=== PATIENT | male | born 1945 | race Caucasian/White ===

== ENCOUNTER 2019-09-27 15:50 | Emergency (ER) | payer MEDICARE ==
[2019-09-27 15:58] VITALS: BP 130/81; PULSE 89
[2019-09-27 16:24] LABS: CHLORIDE,CL 103 mmol/L (98-107); SODIUM,NA 140 mmol/L (136-145)
--- NOTE | 2019-09-27 16:42 | EDM.PDOC ---
ED HPI GENERAL MEDICAL PROBLEM - General Chief Complaint: Respiratory Problem Stated Complaint: cough, fever, chest congestion Time Seen by Provider: 09/27/19 16:15 Source of Information: Reports: Patient History Limitations: Reports: No Limitations - History of Present Illness INITIAL COMMENTS - FREE TEXT/NARRATIVE: 24 hour history of body aches/cough/chills. Congested cough. No SOB/wheeze. No GI changes Has nasal congestion. Denies ear pain/sore throat. Decreased appetite. No fever. No other acute changes reported during ROS. Treatments WINCH OPERATOR: Reports: Other (see below) Other Treatments WINCH OPERATOR: mucinex Generalized Pain Score (Numeric/FACES): 6 - Related Data Allergies Allergy/AdvReac Type Severity Reaction Status Date / Time ciprofloxacin [From Cipro] Allergy Rash Verified 09/27/19 15:58 ciprofloxacin HCl Allergy Rash Verified 09/27/19 15:58 [From Cipro] Home Meds: Home Meds Aspirin [Low Dose Aspirin EC] 81 mg PO DAILY 03/22/15 [History] Cetirizine [ZyrTEC] 10 mg PO DAILY PRN 01/27/18 [History] Cholecalciferol (Vitamin D3) [Vitamin D3] 1,000 units PO DAILY 01/27/18 [History ] Escitalopram Oxalate 20 mg PO DAILY 01/27/18 [History] Finasteride 5 mg PO DAILY 01/27/18 [History] Ibuprofen [Ibu] 400 mg PO Q6H PRN 01/27/18 [History] Losartan [Cozaar] 100 mg PO DAILY 01/27/18 [History] Benzonatate [Tessalon Perle] 100 mg PO TID PRN #30 capsule 09/27/19 [Rx] Metoprolol Succinate [Toprol XL 100mg] 100 mg PO DAILY 09/27/19 [History] Past Medical History Other HEENT History: reading glasses Cardiovascular History: Reports: High Cholesterol, Hypertension Respiratory History: Reports: Sleep Apnea Gastrointestinal History: Reports: Diverticulosis, GERD Musculoskeletal History: Reports: Arthritis, Back Pain, Chronic Psychiatric History: Reports: Addiction, Depression, Mood Swings, Psych Hospitalization(s), PTSD Endocrine/Metabolic History: Reports: Vitamin D Deficiency - Infectious Disease History Infectious Disease History: Reports: Chicken Pox, Measles, Mumps - Past Surgical History HEENT Surgical History: Reports: Tonsillectomy Cardiovascular Surgical History: Reports: None GI Surgical History: Reports: Hernia, Inguinal Endocrine Surgical History: Reports: None Musculoskeletal Surgical History: Reports: None Social & Family History - Family History Family Medical History: Noncontributory - Caffeine Use Caffeine Use: Reports: Coffee ED ROS GENERAL - Review of Systems Review Of Systems: Comprehensive ROS is negative, except as noted in HPI. ED EXAM, GENERAL - Physical Exam Exam: See Below Exam Limited By: No Limitations General Appearance: Alert, WD/WN, No Apparent Distress, Other (appears fatigued) Eye Exam: Bilateral Eye: EOMI, PERRL Ears: Normal External Exam, Normal Canal, Hearing Grossly Normal Nose: No: Nasal Deformity, Nasal Swelling, Nasal Drainage Throat/Mouth: Normal Inspection, Normal Lips, Normal Voice, No Airway Compromise Head: Atraumatic, Normocephalic Neck: Normal Inspection, Supple, Non-Tender, Full Range of Motion Respiratory/Chest: No Respiratory Distress, Lungs Clear, Normal Breath Sounds, No Accessory Muscle Use, Chest Non-Tender Cardiovascular: Normal Peripheral Pulses, Regular Rate, Rhythm, No Edema, No Murmur Peripheral Pulses: 2+: Radial (L), Radial (R) GI/Abdominal: Normal Bowel Sounds, Soft, Non-Tender, No Distention (Male) Exam: Deferred Rectal (Males) Exam: Deferred Back Exam: Normal Inspection Extremities: Normal Inspection, Normal Range of Motion, Normal Capillary Refill Neurological: Alert, Oriented, Normal Cognition, Normal Gait, No Motor/Sensory Deficits Psychiatric: Normal Affect, Normal Mood Skin Exam: Warm, Dry, Intact, Normal Color Course - Vital Signs Last Recorded V/S: Last Vital Signs Temp 36 C L 09/27/19 15:50 Pulse 89 09/27/19 15:50 Resp 20 09/27/19 15:50 BP 130/81 09/27/19 15:50 Pulse Ox - Orders/Labs/Meds Orders: Active Orders 24 hr Category Date Time Status Chest 2V [CR] Stat Exams 09/27/19 16:00 Taken CULTURE BLOOD [BC] Stat Lab 09/27/19 16:07 Received UA W/MICROSCOPIC [URIN] Stat Lab 09/27/19 15:59 Ordered Labs: Laboratory Tests 09/27/19 09/27/19 09/27/19 Range/Units 16:07 16:07 16:07 WBC 4.9 (4.0-10.2) K/uL RBC 4.79 (4.33-5.41) M/uL Hgb 14.4 (13.1-16.8) g/dL Hct 43.0 (39.0-49.0) % MCV 89.8 (84.0-98.0) fL MCH 30.1 (28.2-33.3) pg MCHC 33.5 (31.7-36.0) g/dL RDW 12.7 (11.2-14.1) % Plt Count 182 (150-350) K/uL Neut % (Auto) 71.6 (45.0-80.0) % Lymph % (Auto) 11.6 (10.0-50.0) % Hyde % (Auto) 15.0 H (2.0-14.0) % Eos % (Auto) 1.2 (0.0-5.0) % Baso % (Auto) 0.6 (0.0-2.0) % Neut # (Auto) 3.53 (1.40-7.00) K/uL Lymph # (Auto) 0.57 (0.50-3.50) K/uL Hyde # (Auto) 0.74 (0.00-1.00) K/uL Eos # (Auto) 0.06 (0.00-0.50) K/uL Baso # (Auto) 0.03 (0.00-0.20) K/uL Sodium 140 (136-145) mmol/L Potassium 4.0 (3.5-5.1) mmol/L Chloride 103 (98-107) mmol/L Carbon Dioxide 26.6 (21.0-32.0) mmol/L BUN 18 (7-18) mg/dL Creatinine 1.05 (0.51-1.17) mg/dL Est Cr Clr Drug Dosing 74.89 mL/min Estimated GFR (MDRD) > 60 mL/min Glucose 115 H (74-106) mg/dL Lactic Acid 1.5 (0.4-2.0) mmol/L Calcium 8.5 (8.5-10.1) mg/dL Magnesium 1.8 (1.8-2.4) mg/dL Total Bilirubin 0.9 (0.2-1.0) mg/dL AST 18 (15-37) U/L ALT 27 (12-78) U/L Alkaline Phosphatase 99 (46-116) IU/L Total Protein 6.6 (6.4-8.2) g/dL Albumin 3.6 (3.4-5.0) g/dL - Re-Assessments/Exams Free Text/Narrative Re-Assessment/Exam: No obvious focal pneumonia on chest xray. Radiology to review. Normal WBC. CBC /Chem overall unremarkable. Influenza negative. Suspect viral syndrome. Patient received cough medication/albuterol MDI from ER stock. Tessalon Perles Rx to [facility] Sunday. Precautions reviewed. To follow up as needed if this does not follow normal viral course. Departure - Departure Time of Disposition: 16:59 Disposition: Home, Self-Care 01 Condition: Good Clinical Impression: Viral URI with cough - Discharge Information *PRESCRIPTION DRUG MONITORING PROGRAM REVIEWED*: Not Applicable *COPY OF PRESCRIPTION DRUG MONITORING REPORT IN PATIENT ANGUS: Not Applicable Prescriptions: Benzonatate [Tessalon Perle] 100 mg PO TID PRN #30 capsule PRN Reason: Cough Instructions: Viral Respiratory Infection, [facility] Forms: ED Department Discharge Additional Instructions: See how you feel over the next few days. Try the albuterol inhaler for your cough. 1-2 puffs every 4-6 hours as needed. Caution using it at night as it might lead to some insomnia. Use the liquid cough medicine 1-2 tsp every 6 hours. Use the Ketorolac 1 tab every 6 hours for pain. Do not take any ibuprofen or Aleve/naprosyn with this med. OK to take Tylenol. Return for recheck if you have sudden worsening symptoms, or are not significantly improved by the end of the week. Sepsis Event Note - Evaluation Sepsis Screening Result: No Definite Risk - Focused Exam Vital Signs: Vital Signs Temp Pulse Resp BP 09/27/19 15:50 36 C L 89 20 130/81 Date Exam was Performed: 09/27/19 Time Exam was Performed: 19:11 - My Orders Last 24 Hours: My Active Orders 09/27/19 15:59 UA W/MICROSCOPIC [URIN] Stat 09/27/19 16:00 Chest 2V [CR] Stat 09/27/19 16:07 CULTURE BLOOD [BC] Stat - Assessment/Plan Last 24 Hours: My Active Orders 09/27/19 15:59 UA W/MICROSCOPIC [URIN] Stat 09/27/19 16:00 Chest 2V [CR] Stat 09/27/19 16:07 CULTURE BLOOD [BC] Stat
== END 2019-09-27 17:20 | disposition home or self-care (01) ==
LOC: LL.ED 15:50
DX: J06.9 Acute upper respiratory infection, unspecified (principal); I10 Essential (primary) hypertension; K21.9 Gastro-esophageal reflux disease without esophagitis; F32.9 Major depressive disorder, single episode, unspecified; Z79.82 Long term (current) use of aspirin; Z79.899 Other long term (current) drug therapy; Z88.1 Allergy status to other antibiotic agents
CPT/HCPCS: 36415; 71046; 80053; 83605; 83735; 85025; 87040; 87804; 99283; 99283-25

== ENCOUNTER 2020-03-06 08:27 | Emergency (ER) | payer MEDICARE, OTHER ==
[2020-03-06 09:10] VITALS: BP 135/80; PULSE 77
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
== END 2020-03-06 11:31 ==
LOC: LL.ED 08:27
DX: J04.0 Acute laryngitis (principal); R13.10 Dysphagia, unspecified; I10 Essential (primary) hypertension; M10.9 Gout, unspecified; Z88.1 Allergy status to other antibiotic agents; Z79.82 Long term (current) use of aspirin; Z79.899 Other long term (current) drug therapy; Z87.891 Personal history of nicotine dependence
CPT/HCPCS: 70490; 99284; 99284-25

== ENCOUNTER 2020-12-31 13:58 | Emergency (ER) | payer OTHER, MEDICARE ==
[2020-12-31] MEDS ORDERED: Famotidine 20 MG/2 ML SDV IVPUSH ONE (14:10)
[2020-12-31] MEDS ORDERED: Lactated Ringers 1,000 ML IV ONE (14:10)
[2020-12-31] MEDS ORDERED: Pantoprazole 40 MG Vial IVPUSH ONE (14:10)
[2020-12-31] MEDS ORDERED: Sodium Chloride 0.9% 10 ML Syringe FLUSH PRN (14:10)
[2020-12-31] MEDS ORDERED: cefTRIAXone 1 GM in Sodium Chloride 0.9% 100 ML IV ONE (14:10)
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
[2020-12-31 14:42] LABS: PTT,PARTIAL THROMBOPLSTIN TIME 25.1 SEC (24.5-32.8)
[2020-12-31 14:45] LABS: CHLORIDE,CL 107 mmol/L (98-107); SODIUM,NA 142 mmol/L (136-145)
[2020-12-31 15:25] VITALS: BP 129/75; PULSE 71
== END 2020-12-31 15:23 | disposition home or self-care (01) ==
LOC: LL.ED 13:58
DX: K21.9 Gastro-esophageal reflux disease without esophagitis (principal); F41.8 Other specified anxiety disorders; J43.1 Panlobular emphysema; M89.49 Other hypertrophic osteoarthropathy, multiple sites; I10 Essential (primary) hypertension; N28.9 Disorder of kidney and ureter, unspecified; Z87.891 Personal history of nicotine dependence; Z88.1 Allergy status to other antibiotic agents; Z79.82 Long term (current) use of aspirin
CPT/HCPCS: 36415; 74022; 80053; 82150; 83605; 83690; 83735; 84550; 85025; 85610; 85730; 87040; 96365; 96375; 99284; C9113; J0696; J3490; J7120

== ENCOUNTER 2021-04-29 20:09 | Emergency (ER) | payer OTHER, MEDICARE ==
[2021-04-29] MEDS ORDERED: Sodium Chloride 0.9% 10 ML Syringe FLUSH PRN ×2 (20:21→20:27)
[2021-04-29] MEDS ORDERED: Metoclopramide 10 MG/2 ML SDV IVPUSH ONE (20:31)
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
[2021-04-29] MEDS ORDERED: Lactated Ringers 1,000 ML IV SCH (20:45)
[2021-04-29 21:30] LABS: ANION GAP 11.1 meq/L (7-15); CHLORIDE,CL 106 mmol/L (98-107); SODIUM,NA 142 mmol/L (136-145)
[2021-04-29 21:52] LABS: BARBITURATE SCREEN,URINE NEGATIVE (NEGATIVE); BENZODIAZEPINES SCREEN,URINE NEGATIVE (NEGATIVE); EDDP,URINE SCREEN NEGATIVE (NEGATIVE); TCA SCREEN,URINE NEGATIVE (NEGATIVE); THC SCREEN,URINE 50 NG/ML NEGATIVE (NEGATIVE)
[2021-04-29 21:53] LABS: BUPRENORPHINE SCREEN,URINE NEGATIVE (NEGATIVE)
[2021-04-30 06:25] VITALS: BP 110/65; PULSE 70
== END 2021-04-29 23:33 | disposition home or self-care (01) ==
LOC: LL.ED 20:09 → SUPCPDRO 20:09 → LL.ED 23:33
DX: R51.9 Headache, unspecified (principal); R41.0 Disorientation, unspecified; E78.00 Pure hypercholesterolemia, unspecified; I10 Essential (primary) hypertension; Z88.1 Allergy status to other antibiotic agents; Z79.82 Long term (current) use of aspirin; Z20.822 Contact with and (suspected) exposure to COVID-19
CPT/HCPCS: 36415; 70450; 80053; 80305; 80307; 81003; 83735; 84100; 84443; 84484; 85025; 85610; 85730; 86140; 87635; 93005; 96374; 99284; J2765; J7120; 93010; U0002

== ENCOUNTER 2021-06-06 10:29 | Emergency (ER) | payer OTHER, MEDICARE ==
[2021-06-06 11:21] VITALS: BP 120/69; PULSE 92
[2021-06-06 11:21] LABS: ANION GAP 9.4 meq/L (7-15); CHLORIDE,CL 106 mmol/L (98-107); SODIUM,NA 142 mmol/L (136-145)
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
== END 2021-06-06 11:50 | disposition home or self-care (01) ==
LOC: LL.ED 10:29
DX: R06.02 Shortness of breath (principal); E78.00 Pure hypercholesterolemia, unspecified; I10 Essential (primary) hypertension; M19.90 Unspecified osteoarthritis, unspecified site; Z79.82 Long term (current) use of aspirin; Z79.899 Other long term (current) drug therapy; Z88.1 Allergy status to other antibiotic agents; Z20.822 Contact with and (suspected) exposure to COVID-19; Z87.891 Personal history of nicotine dependence
CPT/HCPCS: 36415; 71045; 80053; 83605; 83880; 84484; 85025; 85379; 86140; 93005; 93010; 99284; 99285-25; U0002

== ENCOUNTER 2021-12-12 09:29 | Emergency (ER) | payer OTHER, MEDICARE ==
[2021-12-12] MEDS: Lactated Ringers 1,000 ML IV ONE (09:45)
[2021-12-12] MEDS: diphenhydrAMINE 50 MG/ML SDV IVPUSH ONE (10:50)
[2021-12-12 11:56] VITALS: BP 133/75; PULSE 70
== END 2021-12-12 12:15 | disposition home or self-care (01) ==
LOC: LL.ED 09:29
DX: T78.3XXA Angioneurotic edema, initial encounter (principal); I10 Essential (primary) hypertension; M19.90 Unspecified osteoarthritis, unspecified site; F41.9 Anxiety disorder, unspecified; F32.A Depression, unspecified; Z79.82 Long term (current) use of aspirin; Z79.899 Other long term (current) drug therapy; Z88.1 Allergy status to other antibiotic agents; Z87.891 Personal history of nicotine dependence
CPT/HCPCS: 96374; 99283; 99284; J1200; J7120

== ENCOUNTER 2021-12-12 19:14 | Observation (INO) | payer OTHER, MEDICARE ==
[2021-12-12] MEDS: EPINEPHrine 1 MG/ML SDV ONE (19:43)
[2021-12-12] MEDS: Lactated Ringers 1,000 ML IV ONE (19:43)
[2021-12-12 19:50] LABS: CHLORIDE,CL 106 mmol/L (98-107); SODIUM,NA 144 mmol/L (136-145)
[2021-12-12] MEDS ORDERED: Ondansetron 4 MG Tab.DIS PO PRN (21:04)
[2021-12-12] MEDS ORDERED: Acetaminophen 325 MG Tab PO PRN (21:04)
[2021-12-12] MEDS ORDERED: Polyethylene Glycol 3350 Powder 17 GM Packet PO PRN (21:04)
[2021-12-12] MEDS: diphenhydrAMINE 50 MG/ML SDV IVPUSH ONE (21:34)
[2021-12-13 07:47] LABS: ANION GAP 6.1 meq/L (7-15); CHLORIDE,CL 107 mmol/L (98-107); SODIUM,NA 143 mmol/L (136-145)
[2021-12-13] MEDS: Finasteride 5 MG Tab PO SCH (08:05)
[2021-12-13] MEDS: Aspirin 81 MG Tab.EC PO SCH (08:05)
[2021-12-13] MEDS: Metoprolol Succinate 50 MG Tab.ER PO ONE (08:24)
[2021-12-13 09:18] VITALS: BP 122/84; PULSE 67
[2021-12-13] MEDS: methylPREDNISolone Sodium Succinate 125 MG/2 ML SDV IVPUSH ONE (09:56)
== END 2021-12-13 13:25 | disposition home or self-care (01) ==
LOC: LL.ED 19:14 → LL.MS 20:21
PROVIDERS: ADMIT Hospitalist; ATTEND Hospitalist
DX: T78.2XXA Anaphylactic shock, unspecified, initial encounter (principal); L50.9 Urticaria, unspecified; H54.7 Unspecified visual loss; E78.00 Pure hypercholesterolemia, unspecified; F41.8 Other specified anxiety disorders; J44.9 Chronic obstructive pulmonary disease, unspecified; I12.9 Hypertensive chronic kidney disease with stage 1 through stage 4 chronic kidney disease, or unspecified chronic kidney disease; N18.2 Chronic kidney disease, stage 2 (mild); M13.89 Other specified arthritis, multiple sites; E55.9 Vitamin D deficiency, unspecified; N40.0 Benign prostatic hyperplasia without lower urinary tract symptoms; Z88.1 Allergy status to other antibiotic agents; Z79.82 Long term (current) use of aspirin; Z79.899 Other long term (current) drug therapy; Z87.891 Personal history of nicotine dependence
CPT/HCPCS: 36415; 80048; 80053; 85025; 85027; 86140; 96372; 99217; 99220; 99284; A9270; J0171; J1200; J2930; J7120; 96374; 96375; G0378

== ENCOUNTER 2024-01-10 11:39 | Emergency (ER) | payer OTHER, MEDICARE ==
[2024-01-10 11:46] VITALS: BP 143/87; PULSE 53
[2024-01-10] MEDS: diphenhydrAMINE 50 MG/ML SDV IVPUSH ONE (12:10)
[2024-01-10] MEDS: Famotidine 20 MG/2 ML SDV IVPUSH ONE (12:13)
[2024-01-10] MEDS: methylPREDNISolone Sodium Succinate 125 MG/2 ML SDV IVPUSH ONE (12:13)
[2024-01-10] MEDS ORDERED: Sodium Chloride 0.9% 10 ML Syringe FLUSH PRN (12:24)
== END 2024-01-10 13:05 | disposition home or self-care (01) ==
LOC: LL.ED 11:39
DX: L50.9 Urticaria, unspecified (principal); E78.00 Pure hypercholesterolemia, unspecified; I10 Essential (primary) hypertension; M19.90 Unspecified osteoarthritis, unspecified site; Z87.891 Personal history of nicotine dependence; Z79.82 Long term (current) use of aspirin; Z79.899 Other long term (current) drug therapy; Z88.1 Allergy status to other antibiotic agents
CPT/HCPCS: 96374; 96375; 99283; 99283-25; J1200; J2930; J3490

== ENCOUNTER 2024-05-03 20:06 | Emergency (ER) | payer OTHER, MEDICARE ==
[2024-05-03 20:21] VITALS: BP 154/93; PULSE 93
[2024-05-03 20:26] LABS: BASOPHILS ABSOLUTE AUTO 0.02 K/uL (0.00-0.20); BASOPHILS PERCENT AUTO 0.3 % (0.0-2.0); EOSINOPHILS ABSOLUTE AUTO 0.04 K/uL (0.00-0.50); EOSINOPHILS PERCENT AUTO 0.6 % (0.0-5.0); HEMATOCRIT 44.4 % (39.0-49.0); MEAN CORPUSCULAR HEMOGLOBIN 29.5 pg (28.2-33.3); MEAN CORPUSCULAR HGB CONC 33.8 g/dL (31.7-36.0); MEAN CORPUSCULAR VOLUME 87.4 fL (84.0-98.0); MONOCYTES ABSOLUTE AUTO 0.72 K/uL (0.00-1.00); MONOCYTES PERCENT AUTO 11.3 % (2.0-14.0); NEUTROPHILS ABSOLUTE AUTO 4.91 K/uL (1.40-7.00); NEUTROPHILS PERCENT AUTO 76.8 % (45.0-80.0); PLATELET COUNT,PLT 200 K/uL (150-350); RED BLOOD CELL COUNT 5.08 M/uL (4.33-5.41); RED CELL DISTRIBUTION WIDTH 12.8 % (11.2-14.1); WHITE BLOOD CELL COUNT,WBC 6.4 K/uL (4.0-10.2)
[2024-05-03 20:27] LABS: APPEARANCE,URINE CLEAR; BILIRUBIN,URINE NEGATIVE (NEGATIVE); COLOR,URINE DARK YELLOW; GLUCOSE,URINE 100 mg/dL (NEGATIVE); KETONES,URINE TRACE mg/dL (NEGATIVE); LEUKOCYTE ESTERASE,URINE NEGATIVE (NEGATIVE); NITRITE,URINE NEGATIVE (NEGATIVE); OCCULT BLOOD,URINE NEGATIVE (NEGATIVE); PH,URINE 5.5 (5.0-9.0); PROTEIN,URINE NEGATIVE (NEGATIVE); UROBILINOGEN,URINE 0.2 E.U./dL (0.2-1.0)
[2024-05-03 20:42] LABS: PROTHROMBIN TIME 9.7 SEC (9.0-11.1)
[2024-05-03 20:52] LABS: ALANINE AMINOTRANSFERASE,ALT 31 U/L (12-78); ALBUMIN 3.5 g/dL (3.4-5.0); ALKALINE PHOSPHATASE 90 IU/L (46-116); ANION GAP 12.9 meq/L (7-15); ASPARTATE AMNIOTRANSFERASE,AST 16 U/L (15-37); BILIRUBIN TOTAL 0.6 mg/dL (0.2-1.0); BLOOD UREA NITROGEN,BUN 14 mg/dL (7-18); C-REACTIVE PROTEIN 3.98 mg/dL (0.05-0.30); CALCIUM 8.9 mg/dL (8.5-10.1); CARBON DIOXIDE,CO2 25.1 mmol/L (21.0-32.0); CHLORIDE,CL 101 mmol/L (98-107); CREATININE 1.32 mg/dL (0.51-1.17); GLUCOSE RANDOM 177 mg/dL (70-99); LIPASE 27 U/L (16-77); POTASSIUM,K 3.7 mmol/L (3.5-5.1); PRO B-TYPE NATRIUR PEPT,BNPPRO 194 pg/mL (0-125); PROTEIN TOTAL,TP 6.8 g/dL (6.4-8.2); SODIUM,NA 139 mmol/L (136-145)
[2024-05-03 20:53] LABS: ESTIMATED GFR 55 mL/min (>=60)
== END 2024-05-03 21:17 | disposition home or self-care (01) ==
LOC: LL.ED 20:06
DX: R10.32 Left lower quadrant pain (principal); E78.00 Pure hypercholesterolemia, unspecified; I10 Essential (primary) hypertension; M19.90 Unspecified osteoarthritis, unspecified site; Z79.82 Long term (current) use of aspirin; Z79.899 Other long term (current) drug therapy; Z88.1 Allergy status to other antibiotic agents
CPT/HCPCS: 36415; 80053; 81003; 83690; 83735; 83880; 85025; 85610; 86140; 99284

== ENCOUNTER 2025-02-20 09:13 | Emergency (ER) | payer MEDICARE, OTHER ==
[2025-02-20] MEDS ORDERED: Sodium Chloride 0.9% 10 ML Syringe FLUSH PRN (09:14)
[2025-02-20 09:25] LABS: BASOPHILS ABSOLUTE AUTO 0.06 K/uL (0.00-0.20); BASOPHILS PERCENT AUTO 1.3 % (0.0-2.0); EOSINOPHILS ABSOLUTE AUTO 0.17 K/uL (0.00-0.50); EOSINOPHILS PERCENT AUTO 3.7 % (0.0-5.0); IMMATURE GRAN ABSOLUTE AUTO 0.01 10^3/uL (0.00-0.04); IMMATURE GRAN PERCENT AUTO 0.2 % (0.0-0.4); LYMPHOCYTES ABSOLUTE AUTO 1.19 K/uL (0.50-3.50); LYMPHOCYTES PERCENT AUTO 25.6 % (10.0-50.0); MONOCYTES ABSOLUTE AUTO 0.43 K/uL (0.00-1.00); MONOCYTES PERCENT AUTO 9.3 % (2.0-14.0); NEUTROPHILS ABSOLUTE AUTO 2.78 K/uL (1.40-7.00); NEUTROPHILS PERCENT AUTO 59.9 % (45.0-80.0); PLATELET COUNT,PLT 225 K/uL (150-350); RED BLOOD CELL COUNT 5.21 M/uL (4.33-5.41); RED CELL DISTRIBUTION WIDTH 12.7 % (11.2-14.1); WHITE BLOOD CELL COUNT,WBC 4.6 K/uL (4.0-10.2)
[2025-02-20 09:31] VITALS: PULSE 65
[2025-02-20 09:50] LABS: ALANINE AMINOTRANSFERASE,ALT 32.0 U/L (12-78); ASPARTATE AMNIOTRANSFERASE,AST 18.0 U/L (15-37); BILIRUBIN TOTAL 0.4 mg/dL (0.2-1.0); BLOOD UREA NITROGEN,BUN 18.0 mg/dL (7-18); CARBON DIOXIDE,CO2 29.5 mmol/L (21.0-32.0); CHLORIDE,CL 105.0 mmol/L (98-107); CREATININE 1.12 mg/dL (0.51-1.17); EST CRCL DRUG DOSING (CG) 59.57 mL/min; GLUCOSE RANDOM 119.0 mg/dL (70-99); POTASSIUM,K 4.2 mmol/L (3.5-5.1); PROTEIN TOTAL,TP 6.5 g/dL (6.4-8.2); SODIUM,NA 143.0 mmol/L (136-145)
[2025-02-20 09:52] LABS: ESTIMATED GFR 67.0 mL/min (>=60)
[2025-02-20 10:16] LABS: INR 1.0 (0.9-1.1)
[2025-02-20 10:42] VITALS: BP 126/69
== END 2025-02-20 10:30 | disposition home or self-care (01) ==
LOC: LL.ED 09:13
DX: R07.89 Other chest pain (principal); I10 Essential (primary) hypertension; E78.00 Pure hypercholesterolemia, unspecified; Z88.1 Allergy status to other antibiotic agents; Z88.8 Allergy status to other drugs, medicaments and biological substances; Z79.82 Long term (current) use of aspirin; Z79.899 Other long term (current) drug therapy
CPT/HCPCS: 36415; 71045; 80053; 83735; 84484; 85025; 85610; 93005; 93010; 99284; 99285